=== PATIENT | male | born 1980 | race Two or more races ===

== ENCOUNTER 2017-11-28 13:48 | Emergency (ER) | payer OTHER ==
[~2017-11-28] VITALS: Ht 175.3 cm; Wt 117.9 kg
[2017-11-28 13:56] VITALS: BP 125/86
--- NOTE | 2017-11-28 13:56 | NUR ---
A/OX4, AMBULATORY TO ED BED 07, PT IS COMPLAINING OF PAIN TO RT UPPER ARM, PT SAID HE NOTED A BUMP TO HIS UPPER ARM AT 1PM WHILE AT WORK, NO INJURY. PT STS HE HAS NUMBNESS TO RT FOREARM. NAD VSS RR EVEN AND UNLABORED. SKIN IS WARM AND NON DIAPHROETIC. PENDING ER MD VILLALPANDO
== END 2017-11-28 15:32 | disposition home or self-care (01) ==
LOC: ER 13:52
DX: I82.611 Acute embolism and thrombosis of superficial veins of right upper extremity (principal); Z90.89 Acquired absence of other organs; Z88.6 Allergy status to analgesic agent; F17.200 Nicotine dependence, unspecified, uncomplicated
CPT/HCPCS: 93971-TC; A4606; Z7610